=== PATIENT | female | born 1950 | race Caucasian/White ===

== ENCOUNTER → 2018-03-30 | Day surgery (SDC) | payer MEDICARE, OTHER ==
[~2018-03-30] MED LIST: BUPIVACAINE HCL 0.5 % INJ/PF 30 ML SDV ONE; LIDOCAINE 1% INJ-PF (10 MG/ML) 30 ML SDV ONE
--- NOTE | 2018-03-30 08:53 | Operative Report ---
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 Radiofrequency Ablation of left L5 dorsal Ramus 2. Sacroiliac Joint Ablation - Lateral Branches of left S1, S2, S3 DATE OF PROCEDURE: March 30, 2018 ANESTHESIA: Local COMPLICATIONS: None CONSENT: A full description of the procedure was provided including benefits as well as possible complications. All questions were answered and informed consent was given and signed. ASA guidelines for fasting were verified prior to sedation. PROCEDURE IN DETAIL The patient was brought into the fluoroscopy suite and carefully assisted into the prone position on the fluoroscopy table and allowed to adjust to a position of comfort. A grounding pad was placed on the right thigh. The low back and buttocks were widely prepped with a chloraprep solution, allowed to air dry and draped in standard sterile surgical fashion. Local anesthesia was provided by 12 mL of 1 % lidocaine delivered with a 25 g needle. PROCEDURE #1: Radiofrequency Ablation of Dorsal Ramus of left L5. A 17g 100mm radiofrequency introducer needle was placed to the planned anatomic target, guided with intermittent fluoroscopy with a perpendicular approach, to terminally place at the left sacral ala. The stylets were removed and the radiofrequency probes with a 4mm active tip were then inserted. Needle tip position of the probes were verified in the AP, oblique, and lateral views. At each site, the medial branch nerve was stimulated at 2Hz to a maximum of 1- 2volts determined to finalize safe needle and electrode placement. The patient was awake and responsive during this portion of the procedure. Each target was anesthetized with 2mL of 2 % Sensorcaine anesthesia for lesioning and then each target was lesioned at 80 degrees Celsius for 2 minutes and 30 seconds. Tissue impedences were noted to be between 250 and 500 Ohms. PROCEDURE #2: Radiofrequency Ablation of left S1, S2, S3 Lateral Branches Using the AP fluoroscopic view for visualization of the lateral PSFA as defined by the pre-placed 27-gauge Quincke needles, appropriate skin starting positions were defined. Using the PSFA as a "clock-face", the positions were: S1; left = 1 and 5 oclock S2; left = 1 and 5 oclock S3; left = 3 oclock Using fluoroscopic guidance, a 17g introducer needle was inserted sequentially onto the target positions described above until the introducer tip touched the bony surface of the sacrum. The stylet was withdrawn from the introducer and the radiofrequency probe with a 4 mm active tip was fully inserted into the introducer. A lateral view was obtained for standard reference. At each of the targets, needle placement was verified with the use of multi-planar fluoroscopy. The needle tip position was approximately 7 - 10mm lateral to the PSFA as determined by using an Epsilon ruler. At each site, the lateral branch nerve was stimulated at 2 Hz to a maximum of 1- 2 volts determined to finalize safe needle and electrode placement. The patient was awake and responsive during this portion of the procedure. Each target was anesthetized with 2 mL of 2 % Sensorcaine anesthesia for lesioning and then each target was lesioned at 80 degrees Celsius for 2 minutes and 30 seconds. Tissue impedences were noted to be between 250- 500 Ohms. At the conclusion of the lesioning the needles were removed and bandages placed over the needle placement sites and the patient returned to the supine position on a stretcher and transported to the recovery room without hemodynamic, neurologic, or allergic reactions. Fluoroscopic images were printed for hard copy recording and digitally archived. FLUOROSCOPIC INTERPRETATION: Appropriate epidurogram obtained. Appropriate lesioning of the 10 targets noted. POST PROCEDURE EVALUATION: The patient was comfortable in the recovery room. The patient is aware that pain may worsen before remitting and 4 6 weeks may be required prior to the onset of pain relief. IMPRESSION: 1. Technically successful sacral lateral branch, lumbar dorsal ramus for denervation from L5-S3 on the left without complication. 2. RTC in 2 weeks. 3. Estimated Blood Loss: None 4. Fluoroscopy time: 30 seconds
== END ==
LOC: RAD 07:30 → EDSTATUS 13:43
PROVIDERS: ATTEND Family Medicine
DX: M47.817 Spondylosis without myelopathy or radiculopathy, lumbosacral region (principal)
CPT/HCPCS: 64635; 64640 ×3; J3490 ×2

== ENCOUNTER 2019-06-13 05:20 | Observation (INO) | payer MEDICARE, OTHER, MEDICAID ==
[2019-06-06 08:46] LABS: ABSOLUTE EOSINOPHILS # (AUTO) 0.1 10^3/uL (0.0-0.6); ABSOLUTE LYMPHOCYTES (AUTO) 0.8 10^3/uL (0.5-4.7); ABSOLUTE MONOCYTES (AUTO) 0.7 10^3/uL (0.1-1.4); ABSOLUTE NEUT (AUTO) 5.1 10^3/uL (1.7-8.2); BASOPHILS % (AUTO) 0.6 % (0-2); EOSINOPHILS % (AUTO) 0.7 % (0-6); HEMATOCRIT 35.1 % (36.0-47.0); HEMOGLOBIN 12.2 g/dL (12.0-15.5); LYMPHOCYTES % (AUTO) 12.3 % (13-45); MEAN CORPUSCULAR HEMOGLOBIN 34.5 pg (27.0-33.4); MEAN CORPUSCULAR HGB CONC 34.6 g/dL (32.0-36.0); MEAN CORPUSCULAR VOLUME 100 fl (80-97); MONOCYTES % (AUTO) 10.6 % (3-13); PLATELET COUNT 139 10^3/uL (150-450); RED BLOOD COUNT 3.53 10^6/uL (3.72-5.28); RED CELL DISTRIBUTION WIDTH 12.8 % (11.5-14.0); SEGMENTED NEUTROPHILS % (AUTO) 75.8 % (42-78); TOTAL CELLS COUNTED % (AUTO) 100 %; WHITE BLOOD COUNT 6.7 10^3/uL (4.0-10.5)
[2019-06-06 09:29] LABS: ANION GAP 11 (5-19); BLOOD UREA NITROGEN 42 mg/dL (7-20); CALCIUM 10.4 mg/dL (8.4-10.2); CARBON DIOXIDE 21 mmol/L (22-30); CHLORIDE 108 mmol/L (98-107); GLUCOSE 107 mg/dL (75-110); POTASSIUM 5.6 mmol/L (3.6-5.0)
--- NOTE | 2019-06-06 09:34 | RADIOLOGY REPORT (SQ) ---
EXAM DESCRIPTION: CHEST PA/LATERAL COMPLETED DATE/TIME: 06/06/2019 9:20 am REASON FOR STUDY: PRE-OP COMPARISON: None. EXAM PARAMETERS: NUMBER OF VIEWS: two views TECHNIQUE: Digital Frontal and Lateral radiographic views of the chest acquired. RADIATION DOSE: NA LIMITATIONS: none FINDINGS: LUNGS AND PLEURA: No opacities, masses or pneumothorax. No pleural effusion. MEDIASTINUM AND HILAR STRUCTURES: No masses or contour abnormalities. HEART AND VASCULAR STRUCTURES: Heart normal size. No evidence for failure. BONES: No acute findings. HARDWARE: None in the chest. OTHER: No other significant finding. IMPRESSION: NO SIGNIFICANT RADIOGRAPHIC FINDING IN THE CHEST. TECHNICAL DOCUMENTATION: JOB ID: [id number] 2010 [employer]- All Rights Reserved Reading location - IP/workstation name: [email or web address]
--- NOTE | 2019-06-06 22:38 | EKG REPORT ---
SEVERITY:- NORMAL ECG - SINUS RHYTHM : Confirmed by: Criselda Strickland 06-Jun-2019 22:37:33
[~2019-06-13 05:20] MED LIST changes: -BUPIVACAINE HCL 0.5 % INJ/PF 30 ML SDV ONE; +CEFAZOLIN SODIUM 2 GM in DEXTROSE 5%-WATER 100 ML IV PRN; +LACTATED RINGERS 1000 ML IV PRN; +LIDOCAINE 0.5% INJ-PF (5 MG/ML) 50 ML SDV SUBCUT PRN; -LIDOCAINE 1% INJ-PF (10 MG/ML) 30 ML SDV ONE
[2019-06-13] MEDS ORDERED: FENTANYL CITRATE INJ/PF 250 MCG/5 ML AMPULE ONE (07:05)
[2019-06-13] MEDS ORDERED: MIDAZOLAM 2 MG/2 ML INJ ONE (07:05)
[2019-06-13] MEDS ORDERED: PROPOFOL 1,000 MG/100 ML INFUS..BTL IV ONE ×2 (07:06→07:07)
[2019-06-13] MEDS ORDERED: DEXMEDETOMIDINE INJ 80 MCG/20 ML VIAL IV ONE (07:06)
[2019-06-13] MEDS ORDERED: LIDOCAINE 2% INJ (20 MG/ML) 20 ML MDV ONE (07:08)
[2019-06-13] MEDS ORDERED: POTASSI CL 20 MEQ/D5-1/2NS 1L 1,000 ML IV PRN (07:40)
[2019-06-13] MEDS ORDERED: ONDANSETRON HCL INJ/PF 4 MG/2 ML SDV IV PRN ×2 (07:45→08:27)
[2019-06-13] MEDS ORDERED: ONDANSETRON 4 MG TAB.RAPDIS PO PRN (07:45)
[2019-06-13] MEDS ORDERED: HEPARIN SOD (PORCINE) 1,000 UNIT/ML 10 ML VIAL ONE (07:48)
[2019-06-13] MEDS ORDERED: MINERAL OIL (STERILE) 10 ML VIAL ONE (07:48)
[2019-06-13] MEDS ORDERED: BACITRACIN INJ 50,000 UNIT VIAL ONE (07:48)
[2019-06-13] MEDS ORDERED: BUPIVACAINE HCL 0.5 % INJ/PF 30 ML SDV ONE (07:48)
[2019-06-13] MEDS ORDERED: BUPIVACAINE INJ/PF LIPOSOME/PF 266 MG/20 ML SDV ONE (07:49)
[2019-06-13] MEDS ORDERED: MORPHINE SULFATE 10 MG/ML INJ IV PRN ×2 (08:27→11:20)
[2019-06-13] MEDS ORDERED: DIPHENHYDRAMINE HCL 50 MG/ML VIAL IV PRN ×2 (08:27→12:41)
[2019-06-13] MEDS ORDERED: FENTANYL CITRATE INJ/PF 100 MCG/2 ML AMPUL IV PRN ×3 (08:27)
[2019-06-13] MEDS ORDERED: MEPERIDINE HCL/PF INJ 25 MG/1 ML DISP.SYRIN IV PRN (08:27)
[2019-06-13] MEDS ORDERED: ROCURONIUM BROMIDE INJ 50 MG/5 ML VIAL IV ONE (08:40)
[2019-06-13] MEDS ORDERED: DEXAMETHASONE SOD PHOSPHATE INJ 4 MG/1 ML VIAL ONE (08:40)
[2019-06-13] MEDS ORDERED: ONDANSETRON HCL INJ/PF 4 MG/2 ML SDV ONE (08:40)
[2019-06-13] MEDS ORDERED: SUCCINYLCHOLINE CHLORIDE INJ 200 MG/10 ML VIAL ONE (08:40)
[2019-06-13] MEDS ORDERED: PHENYLEPHRINE HCL INJ/PF 10 MG/1 ML SDV ONE (08:40)
[2019-06-13] MEDS ORDERED: METHOCARBAMOL INJ/PF 1000 MG/10 ML SDV ONE (10:52)
[2019-06-13] MEDS: FENTANYL CITRATE INJ/PF 100 MCG/2 ML AMPUL ONE ×2 (10:55→11:05)
[2019-06-13] MEDS: MORPHINE SULFATE 10 MG/ML INJ ONE ×2 (11:20→11:48)
--- NOTE | 2019-06-13 11:23 | Operative Report ---
Operative Report DATE OF SURGERY: 06/13/19 Operative Report: L4-5 robotically assisted anterior lateral interbody fusion and posterior instrumentation with left-sided iliac crest aspirate for bone marrow concentration through a separate incision and interbody spacer placed anterior laterally through a separate portal. 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 POSTOPERATIVE DIAGNOSIS: L4-5 spondylolisthesis, L4-5 stenosis, L4-5 radiculitis, back pain, L4-5 instability. OPERATION: L4-5 robotically assisted anterior lateral interbody fusion and posterior instrumentation with left-sided iliac crest aspirate for bone marrow concentration through a separate incision and interbody spacer placed anterior laterally through a separate portal. SURGEON: ARNOLDO ALFARO INTERACTIVE MULTIMEDIA DESIGNER: VIET WITT ANESTHESIA: GA PROCEDURE: The patient is brought into the room and placed under anesthesia. The patient received 2 g of Ancef 1 hour of cut time. After appropriate surgical timeout and positioning the patient in the prone position on the Margarito table C-arm fluoroscopy is brought in to verify good visualization of the L4-5 level. Neuro monitoring leads are positioned and placed preoperatively. After completion of prepping and draping the posterior superior iliac spine on the right side is palpated. A small stab incision is carried out through the skin and a bolts is drilled into the posterior superior iliac spine to be used as an anchor to the robotic system. The left iliac crest is aspirated through a separate stab incision and a total of 60 cc of bone marrow aspirate are obtained from 2 different sites and concentrated to be used an interbody spacer as bone marrow aspirate concentrate with the allograft that we prate placed in the interbody spacer. After positioning the Omaze robotic system to the table and attaching it with a ball tip to the patient to the posterior superior iliac spine on the right side preoperative scan is performed verifying all the instruments and the position of the robot. 2 verification C arm images are obtained preoperatively and matched with the preoperative CT scan. Then the robot arm is positioned to the left than the right side of the patient for placement of the screws. Small stab incisions are placed at each level to allow entry through the skin and then the guide is then positioned at L4and L5 then the drill bit is passed and then the appropriate length screw is positioned. C-arm fluoroscopy was obtained to verify position of the screws as a backup to the robotic system. The screws are then stimulated to thresholds greater than 32 mA using a ball-tipped stimulator. Cranio-motor testing is then also obtained and found to be stable. Caps are placed over the tulips to hold them in position. Attention was then paid to the left side where a separate portal was created using the robotic arm to allow entry into the anterior lateral disc at L4-5. This entry portal is anterior to the transverse process and stimulation with the tip of the probe is used to maintain that there is no stimulation at a threshold of 10 mA fluoroscopy was used to verify the position of the portal and upon entry into the disc space the guidewire is introduced into the disc space and over that the spine Alagille portal is then introduced into the disc space. Making sure that there is no free EMG activity occurring the discectomy is performed using endplate curettes endplate jovanni and the drill bit and pituitaries and then brushes. The verify balloon is introduced into the disc space to verify good contact with the endplates. The spineology mesh spacer 20 mm is filled with bone marrow aspirate concentrate and placed in the interbody space filled with demineralized bone matrix and under C-arm fluoroscopy the correction of the collapse disc space is noted and good positioning of the spacer. After filling the spacer with bone the spacer is locked into position and disconnected from the portal and then new motor testing is obtained to show maintenance of her monitoring signals. Attention is then paid to placement of the rods the caliper is utilized and the rods utilized are 40 liters on the left and 35 mm on the right. These rods are positioned and locked into place and final tightened and final C-arm images are obtained in AP and lateral position showing good position of the interbody spacer and the screws and the rods. Final cranial motor testing is obtained and found to be stable. The wounds were then irrigated with copious Arent amount of bacitracin irrigation and the subcu was reapproximated with 2-0 Vicryl in the deep and superficial layers were infiltrated with 1.3% Exparel 20 cc mixed with 20 cc of 0.5 bupivacaine plain. The skin is closed with Dermabond. And Steri- Strips are placed on top of that after the Dermabond dried. Wounds are dressed in 4 x 4 and coverall. Patient tolerated procedure well.
[2019-06-13] MEDS ORDERED: ACETAMINOPHEN 325 MG SUPP.RECT PR SCH (11:30)
[2019-06-13] MEDS ORDERED: MEPERIDINE HCL/PF INJ 25 MG/1 ML DISP.SYRIN ONE (11:42)
[2019-06-13] MEDS ORDERED: MAGNESIUM HYDROXIDE SUSP 30 ML UDCUP PO PRN (12:18)
--- NOTE | 2019-06-13 12:25 | RADIOLOGY REPORT (SQ) ---
EXAM DESCRIPTION: L SPINE 2 VIEWS; NO CHG FLUORO COMPLETED DATE/TIME: 06/13/2019 10:51 am REASON FOR STUDY: LUMBAR FUSION ASSISTED WITH FLUOROSCOPY IN OR M54.5 LOW BACK PAIN M51.36 OTHER I NTERVERTEBRAL DISC DEGENERATION, LUMBAR REGION M54.40 LUMBAGO WITH SCIATICA, UNSPECIFIED SIDE COMPARISON: None. FLUOROSCOPY TIME: 2.2 minutes Spot images saved to PACS. TECHNIQUE: Intra-operative images acquired during surgical procedure to evaluate progress. NUMBER OF IMAGES: 2 LIMITATIONS: None. FINDINGS: Fluoroscopy was provided for intraoperative procedure. Please refer to the operative repo rt for further discussion. IMPRESSION: IMAGE(S) OBTAINED DURING PROCEDURE. COMMENT: Quality ID [id number]: Final reports for procedures using fluoroscopy that document radiation exp osure indices, or exposure time and number of fluorographic images (if radiation exposure indices are not available) Please consult full operative report of the attending physician for description of the procedure. TECHNICAL DOCUMENTATION: JOB ID: [id number] 2010 [email or web address]- All Rights Reserved Reading location - IP/workstation name: [email or web address]
--- NOTE | 2019-06-13 12:25 | RADIOLOGY REPORT (SQ) ---
EXAM DESCRIPTION: L SPINE 2 VIEWS; NO CHG FLUORO COMPLETED DATE/TIME: 06/13/2019 10:51 am REASON FOR STUDY: LUMBAR FUSION ASSISTED WITH FLUOROSCOPY IN OR M54.5 LOW BACK PAIN M51.36 OTHER I NTERVERTEBRAL DISC DEGENERATION, LUMBAR REGION M54.40 LUMBAGO WITH SCIATICA, UNSPECIFIED SIDE COMPARISON: None. FLUOROSCOPY TIME: 2.2 minutes Spot images saved to PACS. TECHNIQUE: Intra-operative images acquired during surgical procedure to evaluate progress. NUMBER OF IMAGES: 2 LIMITATIONS: None. FINDINGS: Fluoroscopy was provided for intraoperative procedure. Please refer to the operative repo rt for further discussion. IMPRESSION: IMAGE(S) OBTAINED DURING PROCEDURE. COMMENT: Quality ID [id number]: Final reports for procedures using fluoroscopy that document radiation exp osure indices, or exposure time and number of fluorographic images (if radiation exposure indices are not available) Please consult full operative report of the attending physician for description of the procedure. TECHNICAL DOCUMENTATION: JOB ID: [id number] 2010 [employer]- All Rights Reserved Reading location - IP/workstation name: [email or web address]
[2019-06-13] MEDS ORDERED: DIPHENHYDRAMINE HCL 25 MG CAPSULE PO PRN (12:40)
[2019-06-13] MEDS: DOCUSATE SODIUM 100 MG CAPSULE PO SCH ×2 (12:58→18:27)
[2019-06-13] MEDS: OXYCODONE HCL IR 5 MG TABLET PO PRN ×2 (13:03→19:53)
[2019-06-13] MEDS: METHOCARBAMOL 750 MG TABLET PO PRN ×2 (16:14→18:42)
[2019-06-13] MEDS: CEFAZOLIN SODIUM 2 GM in DEXTROSE 5%-WATER 100 ML IV SCH ×2 (16:15→23:54)
[2019-06-13] MEDS ORDERED: OXYCODONE HCL IR 5 MG TABLET PO ONE (16:30)
[2019-06-13] MEDS: ACETAMINOPHEN 325 MG TABLET PO SCH (21:13)
[2019-06-13] MEDS: DIAZEPAM 5 MG TABLET PO PRN (21:14)
[2019-06-14] MEDS: OXYCODONE HCL IR 5 MG TABLET PO PRN ×4 (02:47→22:30)
[2019-06-14] MEDS: METHOCARBAMOL 750 MG TABLET PO SCH ×4 (02:48→22:29)
[2019-06-14] MEDS: ACETAMINOPHEN 325 MG TABLET PO SCH ×3 (06:54→22:30)
[2019-06-14] MEDS: DOCUSATE SODIUM 100 MG CAPSULE PO SCH ×2 (09:59→17:22)
[2019-06-14] MEDS ORDERED: HYDRALAZINE HCL 50 MG TABLET PO SCH (10:00)
[2019-06-14] MEDS ORDERED: CHLORTHALIDONE 25 MG TABLET PO SCH (10:00)
[2019-06-14] MEDS ORDERED: LOSARTAN POTASSIUM 50 MG TABLET PO SCH (10:00)
[2019-06-14] MEDS ORDERED: LABETALOL HCL 200 MG TABLET PO SCH (10:00)
--- NOTE | 2019-06-14 12:17 | PDOC PROGRESS REPORT ---
Subjective Progress Note for:: 06/14/19 Subjective:: Postop day 1 lumbar fusion: Patient is sitting up in her bed at this time exam, reports very little pain or discomfort, she reports that she is eating well and drinking well and using the bathroom without difficulty. She would like to progress up to a solid food diet. Denies nausea or vomiting Reason For Visit: LUMBAR SPONDYLOLISTHESES,LUMBAR STENOSIS, Physical Exam Vital Signs: Temp Pulse Resp BP Pulse Ox 97.5 F 70 17 143/56 H 97 06/13/19 23:37 06/13/19 23:37 06/13/19 23:37 06/13/19 23:37 06/13/19 23:37 Intake & Output 06/13/19 06/14/19 06/15/19 06:59 06:59 06:59 Intake Total 0 3580 Output Total 100 Balance 0 3480 Weight 90.72 kg General appearance: PRESENT: no acute distress, well-developed, well-nourished Eye exam: PRESENT: PERRLA Rectal exam: PRESENT: deferred Musculoskeletal exam: PRESENT: ambulatory, tenderness, other - Bilateral lower extremities: Neurovascular is intact, moves feet without pain or difficulty, 2+ dorsalis pedis pulse bilaterally, bilateral calves are soft and nontender. Surgical site is clean and dry dressing is intact, no signs of drainage or blood are noted on the dressing, normal postoperative swelling ecchymosis and tenderness is appreciated. Psychiatric exam: PRESENT: appropriate affect Skin exam: PRESENT: dry Results Laboratory Results: 06/06/19 08:20 06/13/19 06:07 Impressions: Chest X-Ray 06/06/19 09:12 IMPRESSION: NO SIGNIFICANT RADIOGRAPHIC FINDING IN THE CHEST. Fluoroscopy 06/13/19 00:00 IMPRESSION: IMAGE(S) OBTAINED DURING PROCEDURE. Lumbar Spine X-Ray 06/13/19 00:00 IMPRESSION: IMAGE(S) OBTAINED DURING PROCEDURE. Assessment & Plan - Diagnosis (1) Fusion of lumbar spine Is this a current diagnosis for this admission?: Yes - Time Time Spent with patient: Less than 15 minutes - Plan Summary Plan Summary: Postop day 1 lumbar fusion: Aggressive physical therapy per protocol, progress to regular diet, DC IV when taking appropriate to p.o. liquids and diet. Discharge home tomorrow
[2019-06-14] MEDS: DIAZEPAM 5 MG TABLET PO PRN (22:31)
[2019-06-15] MEDS: METHOCARBAMOL 750 MG TABLET PO SCH (05:53)
[2019-06-15] MEDS: ACETAMINOPHEN 325 MG TABLET PO SCH (05:54)
[2019-06-15] MEDS: OXYCODONE HCL IR 5 MG TABLET PO PRN (05:55)
--- NOTE | 2019-06-15 08:28 | PDOC DISCHARGE SUMMARY ---
General - Admit/Disc Date/PCP Admission Date/Primary Care Provider: 06/13/19 07:41 Discharge Date: 06/15/19 - Discharge Diagnosis Final Diagnosis: Status post L4-5 anterior lateral lumbar fusion and posterior L4-5 instrumentation robotically assisted iliac crest aspiration with bone marrow concentration and allografting. - Assessment Summary: Patient was admitted underwent L4-5 fusion robotically assisted did very well and is being discharged today condition is stable. - Additional Information Resuscitation Status: Full Code Discharge Diet: As Tolerated Discharge Activity: No Driving, No Lifting/Push/Pulling - No lifting more than 2 pounds and no bending kneeling pushing or pulling Referrals: RITA NEVAREZ MD [Primary Care Provider] - Prescriptions: Docusate Sodium [Colace 100 mg Capsule] 100 mg PO BID 30 Days #60 capsule Oxycodone HCl [Oxy-Ir 5 mg Tablet] 5 mg PO Q4HP PRN #40 tablet PRN Reason: For Pain Scale 3-5 Methocarbamol [Robaxin 750 mg Tablet] 1,500 mg PO Q8 PRN #120 tablet PRN Reason: Muscle Spasms Acetaminophen [Tylenol 325 mg Tablet] 975 mg PO Q8 30 Days #60 tablet Ondansetron [Zofran Odt 4 mg Tablet] 4 mg PO Q4HP PRN 30 Days #60 tab.rapdis PRN Reason: For Nausea/Vomiting Home Medications: Chlorthalidone [Hygroton 25 mg Tablet] 06/13/19 Hydralazine HCl [Apresoline 50 mg Tablet] 100 mg PO DAILY 06/13/19 Labetalol HCl 200 mg PO DAILY 06/13/19 Losartan Potassium 50 tab PO DAILY 06/13/19 Pantoprazole Sodium [Protonix] 2 tab PO DAILY 06/13/19 Acetaminophen [Tylenol 325 mg Tablet] 975 mg PO Q8 30 Days #60 tablet 06/15/19 Docusate Sodium [Colace 100 mg Capsule] 100 mg PO BID 30 Days #60 capsule 06/15/19 Hydralazine HCl [Apresoline 50 mg Tablet] 50 mg PO DAILY tablet 06/15/19 Labetalol HCl [Normodyne 200 mg Tablet] 200 mg PO DAILY tablet 06/15/19 Losartan Potassium [Cozaar 50 mg Tablet] 50 mg PO DAILY tablet 06/15/19 Methocarbamol [Robaxin 750 mg Tablet] 1,500 mg PO Q8 PRN #120 tablet 06/15/19 Ondansetron [Zofran Odt 4 mg Tablet] 4 mg PO Q4HP PRN 30 Days #60 tab.rapdis 06/15/19 Oxycodone HCl [Oxy-Ir 5 mg Tablet] 5 mg PO Q4HP PRN #40 tablet 06/15/19 History of Present Illiness History of Present Illness: DIANA FISH is a 68 year old female Patient had been dealing with L4-5 instability and back pain failed conservative management and after decision with the patient and discussion with her of the risks indications alternatives determined to proceed with L4-5 robotically assisted fusion. Hospital Course Hospital Course: Patient was admitted and underwent L4-5 robotically assisted fusion anterior lateral interbody spacer posterior instrumentation did well postoperatively and will be discharged home to follow-up in the office. Physical Exam Vital Signs: Temp Pulse Resp BP Pulse Ox 97.9 F 73 18 139/58 H 95 06/15/19 00:15 06/15/19 00:15 06/15/19 00:15 06/15/19 00:15 06/15/19 00:15 Intake & Output 06/14/19 06/15/19 06/16/19 06:59 06:59 06:59 Intake Total 3580 2400 Output Total 100 Balance 3480 2400 Weight 90.72 kg 92.3 kg General appearance: PRESENT: no acute distress Exam: Patient has 2+ dorsalis pedis pulse dressing is intact. Patient has some radiating low back pain worse on the left side which is the site of the interbody spacer placement. Patient has been able to ambulate around the nurses station 3 times. She has no calf tenderness grossly neurovascular intact bilateral lower extremities. Results Laboratory Results: WBC 6.7 10^3/uL (4.0-10.5) 06/06/19 08:20 RBC 3.53 10^6/uL (3.72-5.28) L 06/06/19 08:20 Hgb 12.2 g/dL (12.0-15.5) 06/06/19 08:20 Hct 35.1 % (36.0-47.0) L 06/06/19 08:20 MCV 100 fl (80-97) H 06/06/19 08:20 MCH 34.5 pg (27.0-33.4) H 06/06/19 08:20 MCHC 34.6 g/dL (32.0-36.0) 06/06/19 08:20 RDW 12.8 % (11.5-14.0) 06/06/19 08:20 Plt Count 139 10^3/uL (150-450) L 06/06/19 08:20 Lymph % (Auto) 12.3 % (13-45) L 06/06/19 08:20 [place] % (Auto) 10.6 % (3-13) 06/06/19 08:20 Eos % (Auto) 0.7 % (0-6) 06/06/19 08:20 Baso % (Auto) 0.6 % (0-2) 06/06/19 08:20 Absolute Neuts (auto) 5.1 10^3/uL (1.7-8.2) 06/06/19 08:20 Absolute Lymphs (auto) 0.8 10^3/uL (0.5-4.7) 06/06/19 08:20 Absolute Monos (auto) 0.7 10^3/uL (0.1-1.4) 06/06/19 08:20 Absolute Eos (auto) 0.1 10^3/uL (0.0-0.6) 06/06/19 08:20 Absolute Basos (auto) 0.0 10^3/uL (0.0-0.2) 06/06/19 08:20 Seg Neutrophils % 75.8 % (42-78) 06/06/19 08:20 Sodium 140.1 mmol/L (137-145) 06/06/19 08:20 Potassium 4.3 mmol/L (3.6-5.0) 06/13/19 06:07 Chloride 108 mmol/L (98-107) H 06/06/19 08:20 Carbon Dioxide 21 mmol/L (22-30) L 06/06/19 08:20 Anion Gap 11 (5-19) 06/06/19 08:20 BUN 42 mg/dL (7-20) H 06/06/19 08:20 Creatinine 1.17 mg/dL (0.52-1.25) 06/06/19 08:20 Est GFR ( Amer) 56 (>60) L 02/19/20 08:20 Est GFR (MDRD) Non-Af 46 (>60) L 06/06/19 08:20 Glucose 107 mg/dL (75-110) 06/06/19 08:20 Calcium 10.4 mg/dL (8.4-10.2) H 06/06/19 08:20 Blood Type A POSITIVE 06/13/19 06:07 Antibody Screen NEGATIVE 06/13/19 06:07 Impressions: Chest X-Ray 06/06/19 09:12 IMPRESSION: NO SIGNIFICANT RADIOGRAPHIC FINDING IN THE CHEST. Fluoroscopy 06/13/19 00:00 IMPRESSION: IMAGE(S) OBTAINED DURING PROCEDURE. Lumbar Spine X-Ray 06/13/19 00:00 IMPRESSION: IMAGE(S) OBTAINED DURING PROCEDURE. Patient is status post L4-5 lumbar fusion doing overall well plan is to discharge home and follow-up with me in the office in 10 days. Plan Plan of Treatment: Patient is to be discharged home to follow-up in the office in 10 to 14 days. Patient is instructed to keep the wound clean and dry and intact no showers bird baths until I see her back.
[2019-06-15 09:39] VITALS: BP 167/58
== END 2019-06-15 10:18 | disposition home or self-care (01) ==
LOC: OROUT 05:20 → INOR 05:20 → UNDOADMIN 05:20 → EDSTATUS 07:30 → OROUT 07:40 → INTOOBSV 07:41 → 4N 07:41
PROVIDERS: ADMIT Orthopaedic Surgery; ATTEND Orthopaedic Surgery
DX: M43.16 Spondylolisthesis, lumbar region (principal); M48.061 Spinal stenosis, lumbar region without neurogenic claudication; M51.17 Intervertebral disc disorders with radiculopathy, lumbosacral region; I69.398 Other sequelae of cerebral infarction; R20.3 Hyperesthesia; I10 Essential (primary) hypertension; Z01.810 Encounter for preprocedural cardiovascular examination; Z01.811 Encounter for preprocedural respiratory examination; Z79.899 Other long term (current) drug therapy
CPT/HCPCS: 22558; 22840; 20939; 61783; 22853; 93005; 86900; 86901; 36415 ×2; 86850; 84132; 85025; 80048; 87070; 71046; 72100; 94799; 93010; 97530 ×3; 97116; 97162; 97535; 97165; 00630; C1898; Q9966; A9270 ×16; J2250; J3490 ×6; J0690; J1100; J3010 ×2; J2704; J1644; J2175; J2800; J2270; J2370; J3480; J0330; J2405; J7060; C9290